=== PATIENT | female | born 1980 | race Caucasian/White ===

== ENCOUNTER 2021-05-28 20:01 | Observation (INO) | payer OTHER ==
[~2021-05-28] VITALS: Ht 65 cm; Wt 73.8 kg
[2021-05-28] MEDS ORDERED: HYDROmorphone 2 MG/ML VIAL (DILAUDID) IV ONE ×2 (21:15→23:30)
--- NOTE | 2021-05-28 21:15 | ED General ---
General Stated Complaint: POST OP/SWOLLEN BREAST Source of Information: Patient Exam Limitations: No Limitations (RANGEL AYALA APRN) History of Present Illness Date Seen by Provider: May 28, 2021 Time Seen by Provider: 21:13 Initial Comments To ER with reports of sudden onset of swelling to the right breast this evening at about 7:00. She had a breast reduction at [facility] in [facility] about a week ago. She is from [place] but has family here in town. She was at her family members sporting event this evening when she noticed over the course of about 5 to 10 minutes a sudden onset of pain and swelling within the right breast. The VANNESA drains were removed recently but she noticed a little drainage out of them this evening after this started. She has a history of portal vein hypertension with history of esophageal varices, splenomegaly and chronic pancreatitis. 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 Timing/Duration: 1-2 Days Severity: Moderate Associated Systoms: Denies Symptoms (RANGEL AYALA APRN) Allergies and Home Medications Allergies Coded Allergies: ketorolac (Verified Allergy, Unknown, 05/28/21) morphine (Verified Allergy, Unknown, 05/28/21) Patient Home Medication List Home Medication List Reviewed: Yes (RANGEL AYALA APRN) No Active Prescriptions or Reported Meds Review of Systems Review of Systems Constitutional: see HPI EENTM: see HPI Respiratory: no symptoms reported Cardiovascular: no symptoms reported Genitourinary: no symptoms reported Musculoskeletal: no symptoms reported Skin: see HPI Psychiatric/Neurological: No Symptoms Reported Hematologic/Lymphatic: No Symptoms Reported (RANGEL AYALA APRN) Physical Exam Vital Signs Vital Signs - First Documented 05/28/21 20:55 Temp 36.9 Pulse 77 Resp 18 B/P (MAP) 171/108 (129) Pulse Ox 100 O2 Delivery Room Air (WILBER GILBERT MD) Vital Signs Capillary Refill : (RANGEL AYALA APRN) Height, Weight, BMI Height: '" Weight: lbs. oz. kg; BMI Method: General Appearance: WD/WN, Mild Distress, Other (Mild distress related to pain though she is without tachycardia or hypotension. There is some impressive swelling over the right chest wall superior to the areola. This has begun to extend laterally towards the axilla.) Neck: Full Range of Motion, Normal Inspection Respiratory: Normal Breath Sounds, No Accessory Muscle Use, No Respiratory Distress Cardiovascular: Regular Rate, Rhythm Gastrointestinal: Normal Bowel Sounds, Non Tender, Soft Extremity: Normal Capillary Refill, Normal Inspection Neurologic/Psychiatric: Alert, Oriented x3 Skin: Normal Color, Warm/Dry (RANGEL AYALA APRN) Progress/Results/Core Measures Suspected Sepsis SIRS Temperature: Pulse: Respiratory Rate: Laboratory Tests 05/28/21 21:20: White Blood Count 4.2L Blood Pressure / Mean: Laboratory Tests 05/28/21 21:20: Creatinine 0.68, Platelet Count 79L, Total Bilirubin 1.4H (RANGEL AYALA APRN) Results/Orders Lab Results Laboratory Tests Test 05/28/21 21:20 Range/Units White Blood Count 4.2 L 4.3-11.0 10^3/uL Red Blood Count 3.57 L 3.80-5.11 10^6/uL Hemoglobin 11.2 L 11.5-16.0 g/dL Hematocrit 33 L 35-52 % Mean Corpuscular Volume 93 80-99 fL Mean Corpuscular Hemoglobin 31 25-34 pg Mean Corpuscular Hemoglobin Concent 34 32-36 g/dL Red Cell Distribution Width 13.2 10.0-14.5 % Platelet Count 79 L 130-400 10^3/uL Mean Platelet Volume 12.7 H 9.0-12.2 fL Immature Granulocyte % (Auto) 1 % Neutrophils (%) (Auto) 71 42-75 % Lymphocytes (%) (Auto) 16 12-44 % Monocytes (%) (Auto) 6 0-12 % Eosinophils (%) (Auto) 5 0-10 % Basophils (%) (Auto) 1 0-10 % Neutrophils # (Auto) 3.0 1.8-7.8 10^3/uL Lymphocytes # (Auto) 0.7 L 1.0-4.0 10^3/uL Monocytes # (Auto) 0.3 0.0-1.0 10^3/uL Eosinophils # (Auto) 0.2 0.0-0.3 10^3/uL Basophils # (Auto) 0.0 0.0-0.1 10^3/uL Immature Granulocyte # (Auto) 0.0 0.0-0.1 10^3/uL Percent Immature Platelet Fraction 9.1 H 0.0-7.6 % Sodium Level 135 135-145 MMOL/L Potassium Level 3.9 3.6-5.0 MMOL/L Chloride Level 104 98-107 MMOL/L Carbon Dioxide Level 22 21-32 MMOL/L Anion Gap 9 5-14 MMOL/L Blood Urea Nitrogen 12 7-18 MG/DL Creatinine 0.68 0.60-1.30 MG/DL Estimat Glomerular Filtration Rate 113 BUN/Creatinine Ratio 18 Glucose Level 347 H 70-105 MG/DL Calcium Level 8.7 8.5-10.1 MG/DL Corrected Calcium 9.2 8.5-10.1 MG/DL Total Bilirubin 1.4 H 0.1-1.0 MG/DL Aspartate Amino Transf (AST/SGOT) 49 H 5-34 U/L Alanine Aminotransferase (ALT/SGPT) 59 H 0-55 U/L Alkaline Phosphatase 259 H 40-136 U/L Total Protein 6.6 6.4-8.2 GM/DL Albumin 3.4 3.2-4.5 GM/DL Serum Test, Qualitative NEGATIVE NEGATIVE (WILBER GILBERT MD) Vital Signs/I&O 05/28/21 20:55 Temp 36.9 Pulse 77 Resp 18 B/P (MAP) 171/108 (129) Pulse Ox 100 O2 Delivery Room Air (WILBER GILBERT MD) Vital Signs/I&O Capillary Refill : (RANGEL AYALA APRN) Departure Communication (Admissions) 2300-spoke with Dr. Dukes on-call for plastic surgery at [facility]. Recommend several options. The patient is hemodynamically stable. We could do a needle aspiration here in the ER then do the breast binder, we could send her by private vehicle up to [facility] to be seen in the ER though he is a little leery given her sudden presentation of this about 3 hours ago and it is an 8- hour drive. He would recommend observation at least here to ensure stability overnight. Then we could do evacuation in the morning or CT-guided drain placement tomorrow or just do nothing and ensure stability overnight and allow her to drive up to [facility] tomorrow. I discussed these options with the patient, she would like to proceed with needle aspiration here in the ER then agrees to stay observation and reevaluate in the morning. Dr. Torres agrees with this plan. Procedure note: Area of the right breast swelling was cleansed with Betadine swabs x3 which were allowed to dry. Using sterile technique 2 mL of 1% lidocaine with epinephrine was infiltrated into the overlying tissue. This was using a 27-gauge needle. Following the same hole we then used an 18-gauge needle attached to a 20 cc syringe. Was only able to aspirate about 7 mL of serosanguineous fluid. The rest of it likely too thick/clotted hematoma to be aspirated through the needle lumen. We did this under sterile ultrasound guidance at the bedside. Patient tolerated well. NAME: [facility] REC#: [id number] PT STATUS: REG ER : 1980 PHYSICIAN: RANGEL AYALA APRN ADMIT DATE: 05/28/21/ER Draft Date of Exam:05/28/21 CT CHEST W PROCEDURE: CT chest with contrast only. TECHNIQUE: Multiple contiguous axial images were obtained through the chest after administration of intravenous contrast. Auto Exposure Controls were utilized during the CT exam to meet ALARA standards for radiation dose reduction. DATE: May 28, 2021. COMPARISON: None. INDICATION: 40-year-old female, chest swelling. FINDINGS: There is no identified pulmonary nodule or lung mass. There is no otherwise noted focal airspace consolidation. There is no pneumothorax. There is no pleural effusion. The central airways are patent. The heart is not enlarged. There is no pericardial effusion. There is no identified abnormally enlarged mediastinal, hilar or axillary lymph node meeting CT size criteria for adenopathy. There is heterogeneous abnormal masslike attenuation in the region of the right breast which is asymmetrically prominent in size compared to the left. This right breast mass like abnormality measures 15.2 x 8.4 cm in axial dimension. There is adjacent inflammatory stranding. There is an area of central low attenuation within this masslike process on axial image 50. There is also a focus of abnormal gas on axial image 32 in the right breast. There are also abnormal foci of gas in the left breast. There is also stranding in the region of the left breast as well. There is prominent abnormal peritoneal stranding. There is diffuse wall thickening of the stomach. There is abnormal wall thickening of the small bowel. There is no identified free intraperitoneal air or portal venous gas. There is no identified pneumatosis. There is a calcified mass in the right upper quadrant near the level of the libra hepatis projecting potentially within the liver measuring 2.7 x 2.7 cm in size. The gallbladder is not well seen. The patient appears to be status post partial right hepatectomy. There is no identified abnormally enlarged lymph node in the abdomen meeting size criteria for adenopathy. There is no identified acute bony abnormality. There are advanced degenerative changes of the cervical spine. The spleen is enlarged. IMPRESSION: CT chest: 1. Very large mass in the right breast of heterogeneous internal attenuation with inflammatory stranding in the right and left breasts as well as areas of abnormal subcutaneous gas. The inflammatory stranding does raise concern for a potential infectious or inflammatory process. The mass may potentially reflect hematoma, abscess or malignancy. Recommend correlation. 2. Extensive stranding in the peritoneal cavity which potentially could relate to an infectious or malignant process. No sizable volume ascites. 3. Partially calcified mass in the region of the central aspect of the liver/libra hepatis. 4. The patient appears to be status post partial right hepatectomy. Recommend correlation with past surgical history. 5. Splenomegaly. 6. Abnormal wall thickening of the stomach and small bowel which may relate to a nonspecific gastritis and enteritis. Dictated on workstation # [id number] Dict: 05/28/212211 Trans: 05/28/212221 [facility] [id number] Interpreted by: HENRIK SHERMAN MD Electronically signed by: (RANGEL AYALA APRN) Impression Primary Impression: Postoperative hematoma Disposition: ADMITTED INPATIENT Condition: Stable Admissions Decision to Admit Reason: Admit from ER (General) Decision to Admit/Date: May 28, 2021 Time/Decision to Admit Time: 23:18 (RANGEL AYALA APRN) Departure-Patient Inst. Scripts No Active Prescriptions or Reported Meds ATTENDING PHYSICIAN NOTE: I was physically present as attending physician in the emergency department during the care of this patient, but I was not directly involved in the decision making or delivery of care for this patient. (WILBER GILBERT MD) RANGEL AYALA APRN May 28, 2021 21:15 WILBER GILBERT MD May 31, 2021 06:44
[2021-05-28 21:42] LABS: HEMOGLOBIN 11.2 g/dL (11.5-16.0); MEAN PLATELET VOLUME 12.7 fL (9.0-12.2)
[2021-05-28 21:44] LABS: BASOPHILS % (AUTO) 1 % (0-10); EOSINOPHILS # (AUTO) 0.2 10^3/uL (0.0-0.3); EOSINOPHILS % (AUTO) 5 % (0-10); HEMATOCRIT 33 % (35-52); LYMPHOCYTES # (AUTO) 0.7 10^3/uL (1.0-4.0); LYMPHOCYTES % (AUTO) 16 % (12-44); MEAN CORPUSCULAR HEMOGLOBIN 31 pg (25-34); MEAN CORPUSCULAR HGB CONC 34 g/dL (32-36); MEAN CORPUSCULAR VOLUME 93 fL (80-99); MONOCYTES # (AUTO) 0.3 10^3/uL (0.0-1.0); MONOCYTES % (AUTO) 6 % (0-12); NEUTROPHILS % (AUTO) 71 % (42-75); PLATELET COUNT 79 10^3/uL (130-400); WHITE BLOOD COUNT 4.2 10^3/uL (4.3-11.0)
[2021-05-28 22:00] LABS: ALBUMIN 3.4 GM/DL (3.2-4.5); BILIRUBIN,TOTAL 1.4 MG/DL (0.1-1.0); CALCIUM 8.7 MG/DL (8.5-10.1); CREATININE SERUM 0.68 MG/DL (0.60-1.30); POTASSIUM 3.9 MMOL/L (3.6-5.0); TOTAL PROTEIN 6.6 GM/DL (6.4-8.2)
[2021-05-28] MEDS ORDERED: HOLD METFORMIN - RECEIVED CONTRAST 20 ML VIAL IV SCH (22:15)
[2021-05-28] MEDS ORDERED: IOHEXOL 350 MG/ML 100 ML (OMNIPAQUE 350) VIAL IV ONE (22:15)
[2021-05-28] MEDS ORDERED: NS 100 ML (IVPB) BAG IV ONE (22:15)
--- NOTE | 2021-05-28 22:24 | Diagnostic Imaging Report ---
PROCEDURE: CT chest with contrast only. TECHNIQUE: Multiple contiguous axial images were obtained through the chest after administration of intravenous contrast. Auto Exposure Controls were utilized during the CT exam to meet ALARA standards for radiation dose reduction. DATE: May 28, 2021. COMPARISON: None. INDICATION: 40-year-old female, chest swelling. FINDINGS: There is no identified pulmonary nodule or lung mass. There is no otherwise noted focal airspace consolidation. There is no pneumothorax. There is no pleural effusion. The central airways are patent. The heart is not enlarged. There is no pericardial effusion. There is no identified abnormally enlarged mediastinal, hilar or axillary lymph node meeting CT size criteria for adenopathy. There is heterogeneous abnormal masslike attenuation in the region of the right breast which is asymmetrically prominent in size compared to the left. This right breast mass like abnormality measures 15.2 x 8.4 cm in axial dimension. There is adjacent inflammatory stranding. There is an area of central low attenuation within this masslike process on axial image 50. There is also a focus of abnormal gas on axial image 32 in the right breast. There are also abnormal foci of gas in the left breast. There is also stranding in the region of the left breast as well. There is prominent abnormal peritoneal stranding. There is diffuse wall thickening of the stomach. There is abnormal wall thickening of the small bowel. There is no identified free intraperitoneal air or portal venous gas. There is no identified pneumatosis. There is a calcified mass in the right upper quadrant near the level of the libra hepatis projecting potentially within the liver measuring 2.7 x 2.7 cm in size. The gallbladder is not well seen. The patient appears to be status post partial right hepatectomy. There is no identified abnormally enlarged lymph node in the abdomen meeting size criteria for adenopathy. There is no identified acute bony abnormality. There are advanced degenerative changes of the cervical spine. The spleen is enlarged. IMPRESSION: CT chest: 1. Very large mass in the right breast of heterogeneous internal attenuation with inflammatory stranding in the right and left breasts as well as areas of abnormal subcutaneous gas. The inflammatory stranding does raise concern for a potential infectious or inflammatory process. The mass may potentially reflect hematoma, abscess or malignancy. Recommend correlation. 2. Extensive stranding in the peritoneal cavity which potentially could relate to an infectious or malignant process. No sizable volume ascites. 3. Partially calcified mass in the region of the central aspect of the liver/libra hepatis. 4. The patient appears to be status post partial right hepatectomy. Recommend correlation with past surgical history. 5. Splenomegaly. 6. Abnormal wall thickening of the stomach and small bowel which may relate to a nonspecific gastritis and enteritis. Dictated by: Dictated on workstation # [id number]
[2021-05-28] MEDS ORDERED: LIDOCAINE/EPI 2% 1:100,00 (XYLOCAINE) 20 ML VIAL ONE (23:26)
[2021-05-28] MEDS ORDERED: ceFAZolin INJECTION 1,000 MG VIAL IV ONE (23:30)
[2021-05-28] MEDS ORDERED: MIDAZOLAM 5 MG/5 ML (VERSED) VIAL IVP ONE (23:30)
[2021-05-28] MEDS ORDERED: LIDOCAINE/EPI 1%-1:100,000 (XYLOCAINE) 20ML INJ ONE (23:30)
[2021-05-29] MEDS ORDERED: ONDANSETRON 4 MG/2 ML (SDV) Z0FRAN IV PRN (01:15)
[2021-05-29] MEDS ORDERED: CATHETER FLUSH 10 ML SYR IV PRN (01:15)
[2021-05-29 01:30] VITALS: BP 120/78
[2021-05-29] MEDS ORDERED: LACTATED RINGERS 1,000 ML IV ONE (02:03)
[2021-05-29] MEDS: LACTATED RINGERS 1,000 ML IV SCH ×2 (02:06→10:19)
[2021-05-29] MEDS: HYDROmorphone 2 MG/ML VIAL (DILAUDID) IV PRN ×3 (02:42→11:12)
[2021-05-29 04:59] VITALS: BP 118/81
[2021-05-29] MEDS ORDERED: CATHETER FLUSH 10 ML SYR IV SCH (06:00)
[2021-05-29 06:32] LABS: INR 1.1 (0.8-1.4); PROTHROMBIN TIME PATIENT 14.2 SEC (12.2-14.7)
[2021-05-29 07:15] VITALS: BP 116/77
--- NOTE | 2021-05-29 08:38 | History & Physical-Surgical ---
JOSEALLA Ofelia 05/29/21 0838: History of Present Illness History of Present Illness Reason for visit/HPI CC: Right breast hematoma HPI: Ms. Tijerina is a 40 year old female with a past medical history of portal vein hypertension, choledochal cysts, s/p whipple, esophageal varcies, ascending cholangitis, kasai procedure, right liver lobectomy, recurrent chronic pancreatitis, hepatic encephalopathy, diabetes, atypical lobular hyperplasia, and lobcular carcinoma in situ, and 1 week s/p breast reduction. Ms. Tijerina reports that yesterday afternoon she felt her right breast start to rapidly swell with associated pressure and pain. She denies any redness, warmth, fever, purulent drainage, or signs of infection. She said there was slight serosanguineous drainage on the lateral edge of her breast where a drain was removed on Tuesday. She says ice makes the pain better and certain movements make it worse. She has numbness and tingling in her right hand and arrm. She denies radiation of the pain. She says it comes and goes in waves but has had constant pressure since it began. She rates her discomfort as a 7.5/10 this morning. When she arrived to the ED they drained 7 mL of sanguineous fluid which did not help relieve the pressure. Date of Admission May 28, 2021 at 23:20 Date Seen by a Provider: May 29, 2021 Time Seen by a Provider: 07:10 I consulted on this patient on 05/29/21 08:34 Attending Physician Sandro Torres DO Admitting Physician No,Local Physician Consult Allergies and Home Medications Allergies Coded Allergies: ketorolac (Verified Allergy, Unknown, 05/28/21) morphine (Verified Allergy, Unknown, 05/28/21) Patient Home Medication List No Active Prescriptions or Reported Meds Past Chygwis-Krzlrk-Dxlrpa Hx Patient Social History Tobacco Use?: Yes Tobacco type used: Cigarettes Smoking Status: Former Smoker Smokeless Tobacco Frequency: Never a User Use of E-Cig and/or Vaping dev: No Substance use?: No Alcohol Use?: No Pt feels they are or have been: No Immunizations Up To Date First/Initial COVID19 Vaccinat: May 2020 Second COVID19 Vaccination Jace: June 2020 Tetanus Booster (TDap): Less Than 5 Years Current Status Advance Directives: No Communicates: Verbally Primary Language: Salvadorean Preferred Spoken Language: Salvadorean Is interpretation needed?: No Past Medical History Surgeries: Abdominal (Kasai), Breast, Gallbladder, Lobectomy (Liver), Orthopedic (Wrist), Pancreatic (Whipple) Liver Disease/Jaundice, Pancreatitis, Esophageal Varices, Gall Bladder Disease (Choledocal cyst) Diabetes, Insulin dep Breast (LCIS) Recent Skin Changes (Slight redness midaxillary line right side) Family Medical History Heart Disease (Maternal and paternal), Cancer (Colon cancer in uncle, dx at 40) Review of Systems Constitutional: No fever, No weakness Respiratory: No cough, No dyspnea on exertion Cardiovascular: No chest pain, No palpitations Gastrointestinal: No abdominal pain, No nausea, No vomiting Genitourinary: No dysuria, No frequency Musculoskeletal: No back pain, No muscle weakness Skin: change in color (Midaxillary line right side) Physical Exam Vital Signs Vital Signs - First Documented 05/28/21 20:55 Temp 36.9 Pulse 77 Resp 18 B/P (MAP) 171/108 (129) Pulse Ox 100 O2 Delivery Room Air Capillary Refill : Less Than 3 Seconds Height, Weight, BMI Height: '" Weight: lbs. oz. kg; 174.67 BMI Method: General Appearance: No Apparent Distress, WD/WN HEENT: PERRL/EOMI, Moist Mucous Membranes; No Scleral Icterus (L), No Scleral Icterus (R) Neck: Normal Inspection, Non Tender Respiratory: Lungs Clear, Normal Breath Sounds, No Accessory Muscle Use, No Respiratory Distress Cardiovascular: Regular Rate, Rhythm, No Edema, Normal Peripheral Pulses Gastrointestinal: Normal Bowel Sounds, Non Tender, Soft, Splenomegaly Extremity: Normal Capillary Refill, No Calf Tenderness, No Pedal Edema Neurologic/Psychiatric: Alert, Oriented x3, Normal Mood/Affect, Other Skin: Warm/Dry, Erythema (Right arm midaxillary line, recent breast reduction) Lymphatic: No Adenopathy (Head and neck) Data Review Labs Laboratory Tests 05/28/21 21:20: White Blood Count 4.2L, Red Blood Count 3.57L, Hemoglobin 11.2L, Hematocrit 33L, Mean Corpuscular Volume 93, Mean Corpuscular Hemoglobin 31, Mean Corpuscular Hemoglobin Concent 34, Red Cell Distribution Width 13.2, Platelet Count 79L, Mean Platelet Volume 12.7H, Immature Granulocyte % (Auto) 1, Neutrophils (%) (Auto) 71, Lymphocytes (%) (Auto) 16, Monocytes (%) (Auto) 6, Eosinophils (%) (Auto) 5, Basophils (%) (Auto) 1, Neutrophils # (Auto) 3.0, Lymphocytes # (Auto) 0.7L, Monocytes # (Auto) 0.3, Eosinophils # (Auto) 0.2, Basophils # (Auto) 0.0, Immature Granulocyte # (Auto) 0.0, Percent Immature Platelet Fraction 9.1H, Sodium Level 135, Potassium Level 3.9, Chloride Level 104, Carbon Dioxide Level 22, Anion Gap 9, Blood Urea Nitrogen 12, Creatinine 0.68, Estimat Glomerular Filtration Rate 113, BUN/Creatinine Ratio 18, Glucose Level 347H, Calcium Level 8.7, Corrected Calcium 9.2, Total Bilirubin 1.4H, Aspartate Amino Transf (AST/SGOT) 49H, Alanine Aminotransferase (ALT/SGPT) 59H, Alkaline Phosphatase 259H, Total Protein 6.6, Albumin 3.4, Serum Test, Qualitative NEGATIVE 05/29/21 05:45: Prothrombin Time 14.2, INR Comment 1.1 Assessment/Plan Assessment/Plan Assessment/Plan Assessment: Right breast hematoma - s/p 1 week breast reduction at [facility] - Drainage in ED yielded 7 mL Transaminitis - Most likely 2/2 chronic conditions Anemia - Possibly 2/2 acute hematoma - Monitor Thrombocytopenia - Could be due to chronic splenomegaly - Chronic condition Portal vein HTN h/o Choledochal cyst Whipple Kasai Esophageal varcies Right liver lobectomy h/o hepatic encephaloapthy Atypical lobular hyperplasia LCIS Plan: Pain control as needed Monitor vitals Discussed possibility of interventional radiology placing a drain but discussed risk of continued bleeding with that approach Discussed option of discharge from [facility] with return to [facility] history, patient currently stable SANDRO TORRES DO 05/29/21 1242: History of Present Illness History of Present Illness Reason for visit/HPI CC: right breast swelling 40 year old female with b/l breast reduction 1 week ago. Had drains pulled out tuesday and then drove from [facility] to home going to [place]. Patient was watching a basketball game last night when the right breast had sudden swelling. Having pressure/pain to right breast. Serosang drainage from lateral edge. Patient had ct scan showing large hematoma of right breast. Er tried to drain and got 7 mL of fluid off. Allergies and Home Medications Allergies Coded Allergies: ketorolac (Verified Allergy, Unknown, 05/28/21) morphine (Verified Allergy, Unknown, 05/28/21) Patient Home Medication List Home Medication List Reviewed: Yes No Active Prescriptions or Reported Meds Past Ibxofxt-Opntdv-Dbyycs Hx Past Medical History Surgeries: Abdominal (Kasai), Breast, Gallbladder, Lobectomy (Liver), Orthopedic (Wrist), Pancreatic (Whipple) Liver Disease/Jaundice, Pancreatitis, Esophageal Varices, Gall Bladder Disease (Choledocal cyst) Diabetes, Insulin dep Breast (LCIS) Recent Skin Changes (Slight redness midaxillary line right side) Family Medical History No Pertinent Family Hx Review of Systems Constitutional: No fever, No weakness Respiratory: No cough, No dyspnea on exertion Cardiovascular: No chest pain, No palpitations Gastrointestinal: No abdominal pain, No nausea, No vomiting Genitourinary: No dysuria, No frequency Musculoskeletal: No back pain, No muscle weakness Skin: change in color (Midaxillary line right side) Psychiatric/Neurological: Denies Anxiety, Denies Depressed, Denies Emotional Problems All Other Systems Reviewed Negative Unless Noted: Yes (Negative excepted noted.) Physical Exam General Appearance: No Apparent Distress, WD/WN HEENT: PERRL/EOMI, Normal ENT Inspection, Moist Mucous Membranes Neck: Normal Inspection, Non Tender Respiratory: Chest Non Tender, No Accessory Muscle Use, No Respiratory Distress Cardiovascular: Regular Rate, Rhythm, No JVD Gastrointestinal: Non Tender, Soft Rectal: Deferred Back: No CVA Tenderness, No Vertebral Tenderness Extremity: Normal Capillary Refill, No Calf Tenderness Neurologic/Psychiatric: Alert, Oriented x3, Normal Mood/Affect Skin: Warm/Dry, Erythema (Right arm midaxillary line, recent breast reduction) Lymphatic: No Adenopathy (Head and neck) Comments left breast incisions clean dry intact right breast enlarged compared to right with swelling, slight bruising/redness Assessment/Plan Assessment/Plan Admission Diagonsis s/p b/l breast reduction right breast hematoma Admission Status: Observation Assessment/Plan Right breast hematoma - s/p 1 week breast reduction at [facility] - Drainage in ED yielded 7 mL Transaminitis - Most likely 2/2 chronic conditions Anemia - Possibly 2/2 acute hematoma - Monitor Thrombocytopenia - Could be due to chronic splenomegaly - Chronic condition Portal vein HTN h/o Choledochal cyst Whipple Kasai Esophageal varcies Right liver lobectomy h/o hepatic encephaloapthy Atypical lobular hyperplasia LCIS Pain control as needed Monitor vitals Discussed possibility of interventional radiology placing a drain but discussed risk of continued bleeding with that approach Discussed option of discharge from [facility] with return to [place] Complicated history, patient currently stable After further discussing patient would like to be discharged and head back to [place]. She and her family have been in contact with her surgeon there. Will dc and patient and family will be going back to [place] today. Supervisory-Addendum Brief Verification & Attestation Participated in pt care: history, MDM, physical Personally performed: exam, history, MDM, supervision of care Care discussed with: Medical Student Procedures: n/a Results interpretation: Verified all documentation Verification and Attestation of Medical Student E/M Service A medical student performed and documented this service in my presence. I reviewed and verified all information documented by the medical student and made modifications to such information, when appropriate. I personally performed the physical exam and medical decision making. Sandro Torres, May 29, 2021,08:44 ALLA GARCIA May 29, 2021 08:38 SANDRO TORRES DO May 29, 2021 12:42
[2021-05-29 09:53] LABS: BASOPHILS % (AUTO) 1 % (0-10); EOSINOPHILS # (AUTO) 0.2 10^3/uL (0.0-0.3); HEMOGLOBIN 10.1 g/dL (11.5-16.0); MEAN CORPUSCULAR VOLUME 96 fL (80-99)
[2021-05-29 09:55] LABS: EOSINOPHILS % (AUTO) 5 % (0-10); HEMATOCRIT 31 % (35-52); LYMPHOCYTES # (AUTO) 0.9 10^3/uL (1.0-4.0); LYMPHOCYTES % (AUTO) 18 % (12-44); MEAN CORPUSCULAR HEMOGLOBIN 31 pg (25-34); MEAN CORPUSCULAR HGB CONC 33 g/dL (32-36); MEAN PLATELET VOLUME 13.4 fL (9.0-12.2); MONOCYTES # (AUTO) 0.5 10^3/uL (0.0-1.0); MONOCYTES % (AUTO) 9 % (0-12); NEUTROPHILS # (AUTO) 3.3 10^3/uL (1.8-7.8); NEUTROPHILS % (AUTO) 67 % (42-75); PLATELET COUNT 76 10^3/uL (130-400); WHITE BLOOD COUNT 4.9 10^3/uL (4.3-11.0)
--- NOTE | 2021-05-29 10:30 | Discharge Inst-Simple/Standard ---
Discharge Inst-Standard Patient Instructions/Follow Up Plan of Care/Instructions/FU: Patient to follow up with her Plastic surgeon at [facility], she is going today. Activity as Tolerated: No Discharge Diet: Regular Diet Other Inst to Patient Follow up Appt: Follow up with your plastic surgeon today/tomorrow. Maintain your discharge instructions from plastic surgeon. Instructions: No lifting greater than 10 pounds. No strenuous activity. No Smoking Skin/Wound Care: Keep slight pressure dressing on. Symptoms to Report: Appetite Changes, Extremity Discoloration, Numbness/Tingling, Swelling Increased, Bleeding Excessive, Eyesight Changes, Pain Increased, Urine Color Change, Constipation(Persistent), Fever over 101 degree F, Pain/Pressure in chest, Urinating Difficulty, Cough Up/Vomit Blood, Heart Beat Irreg/Pounding, Pain/Pressure in jaw, Vaginal Bleeding Increase, Cramps in feet or legs, Lightheadedness, Pain/Pressure in shoulder, Diarrhea(Persistent), Memory Changes Suddenly, Questions/Concerns, Weight gain consecutive days, Dizziness/Fainting, Nausea/Vomiting, Shortness of Breath, Weight gain over 2 pounds If questions or concerns contact your physician Or seek help at emergency department. SANDRO PASTOR DO May 29, 2021 10:30
== END 2021-05-29 11:24 | disposition home or self-care (01) ==
LOC: ER 20:04 → 4TH 23:20
PROVIDERS: ADMIT Surgery; ATTEND Surgery
DX: L76.32 Postprocedural hematoma of skin and subcutaneous tissue following other procedure (principal); D05.92 Unspecified type of carcinoma in situ of left breast; D64.9 Anemia, unspecified; D69.6 Thrombocytopenia, unspecified; R74.01 Elevation of levels of liver transaminase levels; E11.9 Type 2 diabetes mellitus without complications; K76.6 Portal hypertension; I85.00 Esophageal varices without bleeding; Z98.890 Other specified postprocedural states; Z98.82 Breast implant status; Z87.891 Personal history of nicotine dependence; Z79.4 Long term (current) use of insulin; Z90.89 Acquired absence of other organs
CPT/HCPCS: 36415; 71260; 80053; 84703; 85025; 85610; G0378